=== PATIENT | male | born 1955 | race Two or more races ===

== ENCOUNTER 2022-11-15 08:10 | Outpatient (CLI) | payer OTHER | END 2022-11-15 08:11 | disposition home or self-care (01) | LOC: LAB 08:10 | DX: H20.12 Chronic iridocyclitis, left eye (principal) ==

== ENCOUNTER 2022-11-19 08:00 | Outpatient (CLI) | payer OTHER | END 2022-11-19 23:00 | disposition home or self-care (01) | LOC: LAB 08:00 | DX: H20.12 Chronic iridocyclitis, left eye (principal) ==

== ENCOUNTER 2022-12-23 11:25 | Inpatient (IN) | payer OTHER ==
[~2022-12-23] VITALS: Ht 182.9 cm; Wt 90.7 kg
[2022-12-24] MEDS ORDERED: DORZOLAMIDE-TIM10 ML (07:46)
[2022-12-24] MEDS ORDERED: ATROPINE SULFATE5 M1 (07:46)
[2022-12-24] MEDS ORDERED: LATANOPROST2.5 ML (07:46)
[2022-12-24] MEDS ORDERED: ACETAZOLAMIDE250 MG (07:46)
[2022-12-24] MEDS ORDERED: ALPHAGAN P5 M2 (07:46)
[2022-12-25] MEDS ORDERED: TOPROL XL25 M1 PO (12:00)
[2022-12-25] MEDS ORDERED: XARELTO20 MG PO (12:00)
[2022-12-25] MEDS ORDERED: LIPITOR20 MG PO (12:00)
== END 2022-12-25 13:48 | disposition home or self-care (01) | DRG 310 ==
LOC: ER 11:25 → ICU-2 16:22 → SURH 12-24 17:41
PROVIDERS: Emergency Medicine; Internal Medicine; ADMIT Internal Medicine; ATTEND Internal Medicine
PROC: BW28ZZZ Computerized Tomography (CT Scan) of Head (ICD-10-PCS; principal; 2022-12-23)
PROC: B24BZZZ Ultrasonography of Heart with Aorta (ICD-10-PCS; 2022-12-23)
PROC: 4A12X4Z Monitoring of Cardiac Electrical Activity, External Approach (ICD-10-PCS; 2022-12-25)
DX: I48.91 Unspecified atrial fibrillation (principal); H40.89 Other specified glaucoma; Z20.822 Contact with and (suspected) exposure to COVID-19

== ENCOUNTER → 2023-02-19 08:36 | Outpatient (CLI) | payer OTHER ==
[~2023-02-19 08:36] MED LIST: ACETAZOLAMIDE250 MG; ALPHAGAN P5 M2; ATROPINE SULFATE5 M1; DORZOLAMIDE-TIM10 ML; LATANOPROST2.5 ML; LIPITOR20 MG PO; TOPROL XL25 M1 PO; XARELTO20 MG PO
[2023-02-19 09:53] LABS: URINE APPEARANCE Clear; URINE BILIRRUBIN Negative (NEGATIVE); URINE BLOOD Negative; URINE COLOR Yellow; URINE GLUCOSE Negative (NEGATIVE); URINE LEUKOCYTE Negative; URINE NITRATE Negative; URINE PROTEIN Negative (NEGATIVE); URINE UROBILINOGEN 0.2 E.U./dl
[2023-02-19 09:58] LABS: URINE RBC 4.8 uL (0.0-20.8)
[2023-02-19 10:00] LABS: HEMATOCRIT 42.5 % (39.0-48.0); HEMOGLOBIN 14.5 g/dL (13-16.00); MEAN CELL VOLUME 90.8 fL (80.0-100.00); MEAN CORPUSCULAR HGB CONC 34.1 g/dl (32.0-36.0); PLATELET COUNT 163 K/uL (150-450); RED BLOOD COUNT 4.68 M/uL (4.00-6.00)
[2023-02-19 10:05] LABS: URINE BACTERIA 3.7 uL (0.0-1933); URINE EPITHELIAL CELLS 0.7 uL (0.0-38.8); URINE WBC 1.3 uL (0.0-23.2)
[2023-02-19 10:37] LABS: INR 1.04; PARTIAL THROMBOPLASTIN TIME 29.1 SECONDS (22.0-34.0); PROTHROMBIN TIME 10.9 SECONDS (9.0-11.5)
[2023-02-19 10:46] LABS: CALCIUM 8.9 mg/dL (8.5-10.1); CREATININE SERUM 1.37 mg/dL (0.70-1.30); GFR 51.67; POTASSIUM 3.91 mEq/L (3.5-5.1)
== END | disposition home or self-care (01) ==
LOC: LAB 08:36
DX: Z01.812 Encounter for preprocedural laboratory examination (principal); Z01.810 Encounter for preprocedural cardiovascular examination; H40.40X0 Glaucoma secondary to eye inflammation, unspecified eye, stage unspecified; H44.139 Sympathetic uveitis, unspecified eye

== ENCOUNTER → 2023-06-20 08:24 | Outpatient (CLI) | payer OTHER ==
[2023-06-20 08:56] LABS: URINE APPEARANCE Clear; URINE BILIRRUBIN Negative (NEGATIVE); URINE BLOOD Negative; URINE COLOR Yellow; URINE GLUCOSE Negative (NEGATIVE); URINE LEUKOCYTE Negative; URINE NITRATE Negative; URINE PROTEIN Negative (NEGATIVE)
[2023-06-20 08:57] LABS: URINE RBC 8.3 uL (0.0-20.8); URINE WBC 1.8 uL (0.0-23.2)
[2023-06-20 09:03] LABS: HEMATOCRIT 45.2 % (39.0-48.0); HEMOGLOBIN 15.3 g/dL (13-16.00); MEAN CELL VOLUME 91.4 fL (80.0-100.00); MEAN CORPUSCULAR HGB CONC 33.9 g/dl (32.0-36.0); PLATELET COUNT 192 K/uL (150-450); RED BLOOD COUNT 4.95 M/uL (4.00-6.00); RED CELL DISTRIBUTION WIDTH 13.2 % (11.5-14.5)
[2023-06-20 09:08] LABS: URINE BACTERIA 1.2 uL (0.0-1933); URINE EPITHELIAL CELLS 1.3 uL (0.0-38.8)
[2023-06-20 09:43] LABS: ALBUMIN 3.7 gm/dL (3.4-5.0); BILIRUBIN TOTAL 1.1 mg/dL (0.3-1.2); CALCIUM 9.1 mg/dL (8.5-10.1); CHOL HDL RATIO 4.7 (0-5.0); CREATININE SERUM 1.01 mg/dL (0.70-1.30); GFR 73.24; GLOBULINA 3.2 G/DL (2.4-3.5); POTASSIUM 4.38 mEq/L (3.5-5.1); TOTAL PROTEIN 6.9 gm/dL (6.4-8.2); TSH 1.11 uIU/mL (0.358-3.74)
== END | disposition home or self-care (01) ==
LOC: LAB 08:24
PROVIDERS: ATTEND Internal Medicine
DX: D64.9 Anemia, unspecified (principal); E11.9 Type 2 diabetes mellitus without complications; E78.00 Pure hypercholesterolemia, unspecified; N39.0 Urinary tract infection, site not specified; E03.8 Other specified hypothyroidism; Z12.11 Encounter for screening for malignant neoplasm of colon; E55.9 Vitamin D deficiency, unspecified

== ENCOUNTER 2023-06-21 09:09 | Outpatient (CLI) | payer OTHER ==
[2023-06-21 12:45] LABS: ob NEGATIVE (NEGATIVE)
== END 2023-06-21 09:11 | disposition home or self-care (01) ==
LOC: LAB 09:09
PROVIDERS: ATTEND Internal Medicine
DX: D64.9 Anemia, unspecified (principal); E11.9 Type 2 diabetes mellitus without complications; E78.00 Pure hypercholesterolemia, unspecified; N39.0 Urinary tract infection, site not specified; E03.8 Other specified hypothyroidism; Z12.11 Encounter for screening for malignant neoplasm of colon; E55.9 Vitamin D deficiency, unspecified

== ENCOUNTER 2023-07-29 11:00 | Outpatient (CLI) | payer OTHER ==
[2023-07-29 12:02] LABS: HEMATOCRIT 45.8 % (39.0-48.0); HEMOGLOBIN 15.6 g/dL (13-16.00); MEAN CELL VOLUME 92.1 fL (80.0-100.00); MEAN CORPUSCULAR HEMOGLOBIN 31.4 pg (27.00-32.0); MEAN CORPUSCULAR HGB CONC 34.1 g/dl (32.0-36.0); PLATELET COUNT 217 K/uL (150-450); RED BLOOD COUNT 4.97 M/uL (4.00-6.00); RED CELL DISTRIBUTION WIDTH 13.4 % (11.5-14.5)
[2023-07-29 12:16] LABS: URINE APPEARANCE Clear; URINE BILIRRUBIN Negative (NEGATIVE); URINE BLOOD Negative; URINE COLOR Yellow; URINE GLUCOSE Negative (NEGATIVE); URINE LEUKOCYTE Negative; URINE NITRATE Negative; URINE PROTEIN Negative (NEGATIVE); URINE UROBILINOGEN 0.2 E.U./dl
[2023-07-29 12:17] LABS: URINE RBC 3.7 uL (0.0-20.8)
[2023-07-29 12:19] LABS: URINE BACTERIA 1.2 uL (0.0-1933); URINE EPITHELIAL CELLS 0.6 uL (0.0-38.8); URINE WBC 1.5 uL (0.0-23.2)
[2023-07-29 12:28] LABS: CALCIUM 9.5 mg/dL (8.5-10.1); CREATININE SERUM 1.09 mg/dL (0.70-1.30); GFR 67.07; POTASSIUM 4.85 mEq/L (3.5-5.1)
[2023-07-29 12:37] LABS: INR 1.03; PARTIAL THROMBOPLASTIN TIME 29.8 SECONDS (22.0-34.0); PROTHROMBIN TIME 10.8 SECONDS (9.0-11.5)
== END 2023-07-29 11:01 | disposition home or self-care (01) ==
LOC: LAB 11:00
DX: H40.1123 Primary open-angle glaucoma, left eye, severe stage (principal); Z01.812 Encounter for preprocedural laboratory examination

== ENCOUNTER 2023-10-30 14:35 | Emergency (ER) | payer OTHER ==
[~2023-10-30] VITALS: Ht 182.9 cm; Wt 90.7 kg
[2023-10-30 16:53] LABS: HEMATOCRIT 44.3 % (39.0-48.0); HEMOGLOBIN 15.1 g/dL (13-16.00); MEAN CELL VOLUME 91.1 fL (80.0-100.00); MEAN CORPUSCULAR HEMOGLOBIN 31.1 pg (27.00-32.0); MEAN CORPUSCULAR HGB CONC 34.1 g/dl (32.0-36.0); PLATELET COUNT 224 K/uL (150-450); RED BLOOD COUNT 4.87 M/uL (4.00-6.00); RED CELL DISTRIBUTION WIDTH 14.1 % (11.5-14.5)
[2023-10-30 17:18] LABS: CALCIUM 9.3 mg/dL (8.5-10.1); CREATININE SERUM 0.99 mg/dL (0.70-1.30); GFR 74.95; POTASSIUM 4.04 mEq/L (3.5-5.1)
== END 2023-10-30 18:13 | disposition home or self-care (01) ==
LOC: ER 14:36
PROVIDERS: Emergency Medicine
DX: R42 Dizziness and giddiness (principal); I49.8 Other specified cardiac arrhythmias; I20.89 Other forms of angina pectoris

== ENCOUNTER → 2024-05-22 09:16 | Outpatient (CLI) | payer OTHER ==
[2024-05-22 10:33] LABS: HEMATOCRIT 45.6 % (39.0-48.0); HEMOGLOBIN 15.3 g/dL (13-16.00); MEAN CELL VOLUME 91.6 fL (80.0-100.00); MEAN CORPUSCULAR HEMOGLOBIN 30.6 pg (27.00-32.0); MEAN CORPUSCULAR HGB CONC 33.4 g/dl (32.0-36.0); PLATELET COUNT 220 K/uL (150-450); RED BLOOD COUNT 4.98 M/uL (4.00-6.00); RED CELL DISTRIBUTION WIDTH 13.7 % (11.5-14.5)
[2024-05-22 10:37] LABS: PH,URINE 5.5 (5.0-8.0); URINE APPEARANCE Clear; URINE BILIRRUBIN Negative (NEGATIVE); URINE BLOOD Negative; URINE COLOR Yellow; URINE GLUCOSE Negative (NEGATIVE); URINE KETONE Negative (NEGATIVE); URINE LEUKOCYTE Negative; URINE NITRATE Negative; URINE PROTEIN Negative (NEGATIVE); URINE UROBILINOGEN 0.2 E.U./dl
[2024-05-22 10:45] LABS: URINE RBC 2.5 uL (0.0-20.8)
[2024-05-22 11:01] LABS: URINE BACTERIA 2.4 uL (0.0-1933); URINE EPITHELIAL CELLS 0.9 uL (0.0-38.8); URINE WBC 0.6 uL (0.0-23.2)
[2024-05-22 11:26] LABS: ALBUMIN 3.6 gm/dL (3.4-5.0); BILIRUBIN TOTAL 1.16 mg/dL (0.3-1.2); CALCIUM 9.5 mg/dL (8.5-10.1); CHOL HDL RATIO 3.5 (0-5.0); CREATININE SERUM 0.93 mg/dL (0.70-1.30); GFR 80.56; GLOBULINA 3.7 G/DL (2.4-3.5); PROSTATIC SPECIFIC ANTIGEN 0.303 NG/ML (0.010-4.00); TOTAL PROTEIN 7.3 gm/dL (6.4-8.2); TSH 1.09 uIU/mL (0.358-3.74)
[2024-05-22 11:31] LABS: POTASSIUM 5.13 mEq/L (3.5-5.1)
== END | disposition home or self-care (01) ==
LOC: LAB 09:16
PROVIDERS: ATTEND Internal Medicine
DX: D64.9 Anemia, unspecified (principal); E11.9 Type 2 diabetes mellitus without complications; E78.00 Pure hypercholesterolemia, unspecified; N39.0 Urinary tract infection, site not specified; E03.8 Other specified hypothyroidism; Z12.11 Encounter for screening for malignant neoplasm of colon; E55.9 Vitamin D deficiency, unspecified; N40.0 Benign prostatic hyperplasia without lower urinary tract symptoms

== ENCOUNTER 2024-05-28 08:52 | Outpatient (CLI) | payer OTHER ==
[2024-05-28 09:42] LABS: ob NEGATIVE (NEGATIVE)
== END 2024-05-28 08:55 | disposition home or self-care (01) ==
LOC: LAB 08:52
PROVIDERS: ATTEND Internal Medicine
DX: D64.9 Anemia, unspecified (principal); E11.9 Type 2 diabetes mellitus without complications; E78.00 Pure hypercholesterolemia, unspecified; N39.0 Urinary tract infection, site not specified; E03.8 Other specified hypothyroidism; Z12.11 Encounter for screening for malignant neoplasm of colon; E55.9 Vitamin D deficiency, unspecified; N40.0 Benign prostatic hyperplasia without lower urinary tract symptoms

== ENCOUNTER 2024-08-24 08:53 | Outpatient (CLI) | payer OTHER ==
[2024-08-24 11:02] LABS: ALBUMIN 3.7 gm/dL (3.4-5.0); BILIRUBIN TOTAL 0.81 mg/dL (0.3-1.2); CALCIUM 9.2 mg/dL (8.5-10.1); CHOL HDL RATIO 3.4 (0-5.0); CREATININE SERUM 0.95 mg/dL (0.70-1.30); GFR 78.37; GLOBULINA 3.4 G/DL (2.4-3.5); POTASSIUM 4.64 mEq/L (3.5-5.1); TOTAL PROTEIN 7.1 gm/dL (6.4-8.2)
[2024-08-24 11:05] LABS: HEMATOCRIT 45.2 % (39.0-48.0); HEMOGLOBIN 15.7 g/dL (13-16.00); MEAN CELL VOLUME 90.3 fL (80.0-100.00); MEAN CORPUSCULAR HEMOGLOBIN 31.3 pg (27.00-32.0); MEAN CORPUSCULAR HGB CONC 34.7 g/dl (32.0-36.0); PLATELET COUNT 164 K/uL (150-450); RED CELL DISTRIBUTION WIDTH 13.8 % (11.5-14.5); TSH 0.927 uIU/mL (0.358-3.74)
[2024-08-24 11:06] LABS: C-REACTIVE PROTEIN 0.48 MG/DL (0.00-0.29)
[2024-08-24 11:20] LABS: URINE APPEARANCE CLEAR; URINE BILIRRUBIN NEGATIVE (NEGATIVE); URINE BLOOD NEGATIVE; URINE COLOR YELLOW; URINE GLUCOSE NEGATIVE (NEGATIVE); URINE KETONE NEGATIVE (NEGATIVE); URINE LEUKOCYTE NEGATIVE; URINE NITRATE NEGATIVE; URINE PROTEIN NEGATIVE (NEGATIVE); URINE RBC 3.9 uL (0.0-20.8); URINE UROBILINOGEN 0.2 E.U./dl; URINE WBC 0.4 uL (0.0-23.2)
[2024-08-24 11:21] LABS: URINE BACTERIA 1.2 uL (0.0-1933); URINE EPITHELIAL CELLS 0.4 uL (0.0-38.8)
== END 2024-08-24 08:57 | disposition home or self-care (01) ==
LOC: LAB 08:53
PROVIDERS: ATTEND Internal Medicine
DX: D64.9 Anemia, unspecified (principal); N39.0 Urinary tract infection, site not specified; R10.9 Unspecified abdominal pain; E03.9 Hypothyroidism, unspecified; E78.5 Hyperlipidemia, unspecified; R07.9 Chest pain, unspecified; R80.9 Proteinuria, unspecified; E11.9 Type 2 diabetes mellitus without complications; I10 Essential (primary) hypertension